=== PATIENT | female | born 1970 | race Caucasian/White ===

== ENCOUNTER 2018-12-21 10:01 | Emergency (ER) | payer OTHER ==
[~2018-12-21] VITALS: Ht 160 cm; Wt 83.9 kg
[~2018-12-21 10:01] MED LIST: CIPRO500 MG PO; LEVSIN0.125 MG PO; PROTONIX40 MG PO; VISTARIL50 MG PO; ZANTAC300 MG PO
== END 2018-12-21 12:17 | disposition home or self-care (01) ==
LOC: ER 10:01
DX: M54.5 Low back pain (principal)

== ENCOUNTER → 2019-06-27 | Emergency (ER) | payer OTHER ==
[~2019-06-27] VITALS: Ht 160 cm; Wt 83.9 kg
== END | disposition home or self-care (01) ==
LOC: ER 21:27
DX: M62.838 Other muscle spasm (principal)

== ENCOUNTER 2019-11-05 22:00 | Emergency (ER) | payer OTHER ==
[~2019-11-05] VITALS: Ht 160 cm; Wt 83.9 kg
[2019-11-05] MEDS ORDERED: TESSALON PERLE100 M1 PO (23:44)
[2019-11-05] MEDS ORDERED: TUSNEL LIQUID178 ML PO (23:44)
[2019-11-05] MEDS ORDERED: CLARITIN10 MG PO (23:44)
[2019-11-05] MEDS ORDERED: MEDROLPACK PO (23:44)
[2019-11-05] MEDS ORDERED: IPRAT-ALBUT 0.5-3 ML IH (23:49)
== END 2019-11-05 23:57 | disposition home or self-care (01) ==
LOC: ER 22:00
DX: J00 Acute nasopharyngitis [common cold] (principal)

== ENCOUNTER 2020-11-30 09:53 | Emergency (ER) | payer OTHER ==
[~2020-11-30] VITALS: Ht 160 cm; Wt 91.6 kg
[~2020-11-30 09:53] MED LIST changes: +CLARITIN10 MG PO; +IPRAT-ALBUT 0.5-3 ML IH; +MEDROLPACK PO; +TESSALON PERLE100 M1 PO; +TUSNEL LIQUID178 ML PO
[2020-11-30] MEDS ORDERED: KETO10TA2 PO (11:32)
[2020-11-30] MEDS ORDERED: ORPHENADRINE C100 MG PO (11:32)
== END 2020-11-30 12:45 | disposition home or self-care (01) ==
LOC: ER 09:53
DX: M54.32 Sciatica, left side (principal)

== ENCOUNTER 2021-07-11 23:20 | Emergency (ER) | payer OTHER ==
[~2021-07-11] VITALS: Ht 160 cm; Wt 93.0 kg
[~2021-07-11 23:20] MED LIST changes: +KETO10TA2 PO; +ORPHENADRINE C100 MG PO
[2021-07-12] MEDS ORDERED: KETO10TA2 PO (03:10)
== END 2021-07-12 03:15 | disposition home or self-care (01) ==
LOC: ER 23:20
DX: M79.89 Other specified soft tissue disorders (principal)

== ENCOUNTER 2021-07-12 13:41 | Outpatient (CLI) | payer OTHER | END 2021-07-12 14:01 | disposition home or self-care (01) | LOC: MAMO-SONO 13:41 | PROVIDERS: ATTEND General Practice | DX: N64.4 Mastodynia (principal); Z12.31 Encounter for screening mammogram for malignant neoplasm of breast ==

== ENCOUNTER 2021-07-13 07:57 | Outpatient (CLI) | payer OTHER | END 2021-07-13 08:01 | disposition home or self-care (01) | LOC: NUCLEAR 07:57 | PROVIDERS: ATTEND General Practice | DX: M79.89 Other specified soft tissue disorders (principal) ==

== ENCOUNTER 2021-09-01 22:18 | Emergency (ER) | payer OTHER ==
[~2021-09-01] VITALS: Ht 162.6 cm; Wt 92.1 kg
[~2021-09-01 22:18] MED LIST changes: +NORFLEX100MG PO
== END 2021-09-02 00:04 | disposition home or self-care (01) ==
LOC: ER 22:18
DX: M54.50 Low back pain, unspecified (principal); M54.32 Sciatica, left side

== ENCOUNTER 2022-01-01 11:29 | Outpatient (CLI) | payer OTHER | END 2022-01-01 11:50 | disposition home or self-care (01) | LOC: SONOGRAMA 11:29 | PROVIDERS: ATTEND Surgery | DX: N60.11 Diffuse cystic mastopathy of right breast (principal); N60.12 Diffuse cystic mastopathy of left breast ==

== ENCOUNTER 2022-02-01 11:21 | Outpatient (CLI) | payer OTHER | END 2022-02-01 14:05 | disposition home or self-care (01) | LOC: SONOGRAMA 11:21 | PROVIDERS: ATTEND Surgery | DX: N60.11 Diffuse cystic mastopathy of right breast (principal); N60.12 Diffuse cystic mastopathy of left breast ==

== ENCOUNTER 2022-03-05 20:44 | Emergency (ER) | payer OTHER ==
[~2022-03-05] VITALS: Ht 152.4 cm; Wt 97.1 kg
== END 2022-03-05 22:48 | disposition home or self-care (01) ==
LOC: ER 20:44
DX: R10.32 Left lower quadrant pain (principal); Z91.041 Radiographic dye allergy status; I88.0 Nonspecific mesenteric lymphadenitis; K80.20 Calculus of gallbladder without cholecystitis without obstruction; Z87.19 Personal history of other diseases of the digestive system

== ENCOUNTER 2022-03-08 09:25 | Emergency (ER) | payer OTHER ==
[~2022-03-08] VITALS: Ht 160 cm; Wt 96.6 kg
== END 2022-03-08 20:50 | disposition home or self-care (01) ==
LOC: ER 09:25
DX: K80.20 Calculus of gallbladder without cholecystitis without obstruction (principal); R10.84 Generalized abdominal pain

== ENCOUNTER 2022-10-12 19:44 | Emergency (ER) | payer OTHER ==
[~2022-10-12] VITALS: Ht 160 cm; Wt 96.6 kg
== END 2022-10-12 23:34 | disposition home or self-care (01) ==
LOC: ER 19:44
DX: S89.92XA Unspecified injury of left lower leg, initial encounter (principal); X58.XXXA Exposure to other specified factors, initial encounter; Y93.9 Activity, unspecified; Y92.9 Unspecified place or not applicable; Y99.9 Unspecified external cause status; Z88.8 Allergy status to other drugs, medicaments and biological substances

== ENCOUNTER 2022-10-16 13:36 | Outpatient (CLI) | payer OTHER | END 2022-10-16 13:53 | disposition home or self-care (01) | LOC: MRI 13:36 | PROVIDERS: ATTEND General Practice | DX: S83.92XA Sprain of unspecified site of left knee, initial encounter (principal) | CPT/HCPCS: 73721 ==

== ENCOUNTER 2022-11-30 21:09 | Emergency (ER) | payer OTHER ==
[~2022-11-30] VITALS: Ht 160 cm; Wt 89.4 kg
== END 2022-11-30 23:01 | disposition home or self-care (01) ==
LOC: ER 21:09
DX: M54.89 Other dorsalgia (principal); M54.2 Cervicalgia; V43.52XA Car driver injured in collision with other type car in traffic accident, initial encounter; Y92.413 State road as the place of occurrence of the external cause; Z91.041 Radiographic dye allergy status; Y93.89 Activity, other specified

== ENCOUNTER → 2023-01-12 | Emergency (ER) | payer OTHER ==
[~2023-01-12] VITALS: Ht 160 cm; Wt 81.6 kg
== END | disposition home or self-care (01) ==
LOC: ER 15:02
DX: M54.42 Lumbago with sciatica, left side (principal); Z91.041 Radiographic dye allergy status

== ENCOUNTER 2024-01-03 06:12 | Emergency (ER) | payer OTHER ==
[~2024-01-03] VITALS: Ht 162.6 cm; Wt 93.4 kg
[2024-01-03] MEDS ORDERED: DEXAMETHASONE SODIUM PHOSPHATE 4 MG/ML VIAL IM ONE (09:45)
[2024-01-03] MEDS ORDERED: CEFTRIAXONE SODIUM 1,000 MG VIAL IM ONE (09:45)
[2024-01-03 09:53] LABS: HEMATOCRIT 39.2 % (36.0-45.00); HEMOGLOBIN 13.4 g/dL (12.0-15.00); MEAN CELL VOLUME 84.2 fL (80.00-100.00); MEAN CORPUSCULAR HEMOGLOBIN 28.8 pg (27.00-32.0); MEAN CORPUSCULAR HGB CONC 34.2 g/dl (32.0-36.0); PLATELET COUNT 269 K/uL (150-450); RED BLOOD COUNT 4.66 M/uL (4.00-6.00); RED CELL DISTRIBUTION WIDTH 14.6 % (11.5-14.5)
== END 2024-01-03 11:44 | disposition home or self-care (01) ==
LOC: ER 06:13
PROVIDERS: General Practice
DX: K04.7 Periapical abscess without sinus (principal); Z88.8 Allergy status to other drugs, medicaments and biological substances

== ENCOUNTER → 2024-05-13 | Emergency (ER) | payer OTHER ==
[~2024-05-13] VITALS: Ht 160 cm; Wt 86.6 kg
[~2024-05-13] MED LIST changes: +KETOROLAC TROMETHAMINE 60 MG VIAL IM ONE; +ORPHENADRINE CITRATE 30 MG/ML AMPUL IM ONE; +ORPHENADRINE CITRATE 30 MG/ML AMPUL ONE
== END | disposition home or self-care (01) ==
LOC: ER 13:51
DX: M54.32 Sciatica, left side (principal); Z91.041 Radiographic dye allergy status

== ENCOUNTER 2024-06-06 10:13 | Emergency (ER) | payer OTHER ==
[~2024-06-06] VITALS: Ht 160 cm; Wt 89.4 kg
[~2024-06-06 10:13] MED LIST changes: -KETOROLAC TROMETHAMINE 60 MG VIAL IM ONE; -ORPHENADRINE CITRATE 30 MG/ML AMPUL IM ONE; -ORPHENADRINE CITRATE 30 MG/ML AMPUL ONE
[2024-06-06 13:22] LABS: HEMATOCRIT 40.6 % (36.0-45.00); HEMOGLOBIN 13.6 g/dL (12.0-15.00); MEAN CELL VOLUME 85.2 fL (80.00-100.00); MEAN CORPUSCULAR HEMOGLOBIN 28.4 pg (27.00-32.0); MEAN CORPUSCULAR HGB CONC 33.4 g/dl (32.0-36.0); PLATELET COUNT 311 K/uL (150-450); RED BLOOD COUNT 4.77 M/uL (4.00-6.00); RED CELL DISTRIBUTION WIDTH 14.5 % (11.5-14.5)
== END 2024-06-06 14:36 | disposition home or self-care (01) ==
LOC: ER 10:15
PROVIDERS: General Practice
DX: B34.9 Viral infection, unspecified (principal); Z91.041 Radiographic dye allergy status; Z20.822 Contact with and (suspected) exposure to COVID-19

== ENCOUNTER 2024-10-07 20:51 | Emergency (ER) | payer OTHER ==
[~2024-10-07] VITALS: Ht 160 cm; Wt 88.5 kg
[2024-10-07] MEDS ORDERED: KETOROLAC TROMETHAMINE 60 MG VIAL IM ONE ×2 (21:30→21:44)
[2024-10-07] MEDS ORDERED: TRIAMCINOLONE ACETONIDE 40 MG/ML VIAL IM ONE (21:30)
[2024-10-07] MEDS ORDERED: TRIAMCINOLONE ACETONIDE 40 MG/ML VIAL ONE (21:43)
[2024-10-07 22:08] LABS: CALCIUM 8.9 mg/dL (8.5-10.1); CREATININE SERUM 1.36 mg/dL (0.55-1.02); GFR 40.22; POTASSIUM 3.48 mEq/L (3.5-5.1)
[2024-10-07] MEDS ORDERED: DICLOFENAC SODI75 MG PO (22:13)
== END 2024-10-07 22:30 | disposition home or self-care (01) ==
LOC: ER 20:54
PROVIDERS: General Practice
DX: M54.50 Low back pain, unspecified (principal); Z91.041 Radiographic dye allergy status

== ENCOUNTER 2025-07-03 20:02 | Emergency (ER) | payer OTHER ==
[~2025-07-03] VITALS: Ht 157.5 cm; Wt 88.9 kg
[~2025-07-03 20:02] MED LIST changes: +DICLOFENAC SODI75 MG PO
[2025-07-03] MEDS ORDERED: METHYLPREDNISOLONE SOD SUCC 40 MG VIAL IM ONE (21:15)
[2025-07-03] MEDS ORDERED: CEFTRIAXONE SODIUM 1,000 MG VIAL IM ONE (21:15)
[2025-07-03] MEDS ORDERED: BENZONATATE 200 MG CAPSULE PO ONE (21:15)
[2025-07-03] MEDS ORDERED: CEFTRIAXONE SODIUM 1,000 MG VIAL ONE (22:06)
[2025-07-03] MEDS ORDERED: METHYLPREDNISOLONE SOD SUCC 40 MG VIAL ONE (22:06)
[2025-07-03 23:21] LABS: BASO % 0.6 % (0.1-1.2); EOS # 0.31 (0.04-0.54); EOS % 3.5 % (0.7-7.0); LYMPH # 2.52 (1.18-3.74); LYMPH % 28.3 % (19.3-53.1); MEAN PLATELET VOLUME 10.10 fl (9.4-12.4); MONO # 1.14 (0.24-0.82); NEUT # 4.84 (1.56-6.13); NEUT % 54.2 % (34.0-71.1); RED CELL DISTRIBUTION WIDTH 13.8 % (11.6-14.4)
[2025-07-03 23:24] LABS: MONO % 12.8 % (4.7-12.5)
[2025-07-03 23:33] LABS: COVID-19 AG NEGATIVE (NEGATIVE)
[2025-07-03] MEDS ORDERED: ZITHROMAX500 MG PO (23:57)
[2025-07-03] MEDS ORDERED: BENZONATATE200 M1 PO (23:57)
[2025-07-03] MEDS ORDERED: PEPCID AC20 MG PO (23:57)
== END 2025-07-04 00:41 | disposition home or self-care (01) ==
LOC: ER 20:03
PROVIDERS: General Practice
DX: R05.9 Cough, unspecified (principal); Z20.822 Contact with and (suspected) exposure to COVID-19; Z88.8 Allergy status to other drugs, medicaments and biological substances